=== PATIENT | female | born 1985 | race Caucasian/White ===

== ENCOUNTER 2020-09-24 23:22 | Inpatient (IN) | payer OTHER ==
[~2020-09-24] VITALS: Ht 152.4 cm; Wt 46.2 kg
--- NOTE | 2020-09-24 23:41 | NUR ---
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 pt postioned to comfort attached to all monitors. fabby. nadn. Christy alrbecht to bedside for evaluation.
[2020-09-25] MEDS ORDERED: SODIUM CHLORIDE FLUSH 10ML SYR IVF ONE
[2020-09-25 00:15] LABS: MICROSCOPIC NOT IND
[2020-09-25 00:19] LABS: BASOPHILS % (AUTO) 0 % (0-1); EOSINOPHILS % (AUTO) 0 % (1-7); LYMPHOCYTES % (AUTO) 3 % (22-44); MEAN CORPUSCULAR HEMOGLOBIN 31.3 pg (27.0-34.8); MEAN CORPUSCULAR HGB CONC 33.8 g/dL (32.4-35.8); MEAN PLATELET VOLUME 8.9 fL (7.4-10.4); MONOCYTES % (AUTO) 1 % (2-9); NEUTROPHILS % (AUTO) 96 % (42-75); PLATELET COUNT 177 x10^3/uL (130-400); RED BLOOD COUNT 3.73 x10^6/uL (3.82-5.3); RED CELL DISTRIBUTION WIDTH 12.8 % (9.6-15.2)
[2020-09-25 00:26] LABS: ALANINE AMINOTRANSFERASE 30 U/L (12-78); ALBUMIN 3.1 g/dL (3.4-5.0); ANION GAP 7 mmol/L (5-15); CALCIUM 7.2 mg/dL (8.5-10.1); CHLORIDE 113 mmol/L (98-107); CREATININE 0.81 mg/dL (0.55-1.02)
[2020-09-25 00:28] LABS: ALKALINE PHOSPHATASE 43 U/L (45-117); BILIRUBIN,TOTAL 0.3 mg/dL (0.2-1.0)
[2020-09-25] MEDS ORDERED: PLEASE ENTER ALLERGIES MC SCH (00:30)
[2020-09-25 00:42] LABS: MD SCAN
[2020-09-25] MEDS ORDERED: ONDANSETRON 2MG/ML, 2ML IVPush PRN ×2 (01:30→11:00)
[2020-09-25] MEDS ORDERED: MORPHINE SULFATE 4 MG/ML, 1ML IVPush PRN (01:30)
[2020-09-25] MEDS ORDERED: SODIUM CHLORIDE 0.9% 1,000 ML IV ONE ×2 (01:30)
[2020-09-25] MEDS ORDERED: PROMETHAZINE 25 MG/ML, 1ML IM PRN (02:00)
[2020-09-25] MEDS ORDERED: ONDANSETRON ODT 4 MG PO PRN (02:00)
[2020-09-25] MEDS ORDERED: hydrALAzine 20 MG/ML, 1ML IVPush PRN (02:00)
[2020-09-25] MEDS ORDERED: ACETAMINOPHEN 325 MG TABLET PO PRN ×2 (02:00→11:00)
[2020-09-25 02:52] VITALS: BP 105/66
[2020-09-25] MEDS: ENOXAPARIN 40 MG/0.4 ML SQ SCH (03:42)
[2020-09-25] MEDS: D5%-0.9% NACL 1,000 ML IV SCH ×2 (03:48→20:00)
[2020-09-25 05:27] LABS: BASOPHILS % (AUTO) 0 % (0-1); EOSINOPHILS % (AUTO) 0 % (1-7); LYMPHOCYTES % (AUTO) 7 % (22-44); MEAN CORPUSCULAR HEMOGLOBIN 31.2 pg (27.0-34.8); MEAN CORPUSCULAR HGB CONC 33.6 g/dL (32.4-35.8); MEAN PLATELET VOLUME 9.2 fL (7.4-10.4); MONOCYTES % (AUTO) 5 % (2-9); NEUTROPHILS % (AUTO) 89 % (42-75); PLATELET COUNT 183 x10^3/uL (130-400); RED BLOOD COUNT 3.58 x10^6/uL (3.82-5.3); RED CELL DISTRIBUTION WIDTH 13.2 % (9.6-15.2)
[2020-09-25 05:44] LABS: CHLORIDE 118 mmol/L (98-107)
[2020-09-25 05:55] LABS: ALANINE AMINOTRANSFERASE 28 U/L (12-78); ALBUMIN 2.9 g/dL (3.4-5.0); ALKALINE PHOSPHATASE 39 U/L (45-117); ANION GAP 8 mmol/L (5-15); BILIRUBIN,TOTAL 0.3 mg/dL (0.2-1.0); CALCIUM 6.9 mg/dL (8.5-10.1); CHOL/HDL RATIO 1.7; CHOLESTEROL, TOTAL 101 mg/dL (140-239); HDL CHOL % 57 % (28-40); HDL CHOLESTEROL (DIRECT) 58 mg/dL (40-60); LDL CHOLESTEROL,CALCULATED 33 mg/dL (54-169); LDL/HDL RATIO 0.6 (0.5-3.0); TOTAL PROTEIN 5.7 g/dL (6.4-8.2); TRIGLYCERIDES 52 mg/dL (50-200); VLDL CHOLESTEROL 10 mg/dL (0-25)
[2020-09-25 05:57] LABS: MD SCAN
[2020-09-25 06:45] VITALS: BP 118/81
[2020-09-25] MEDS ORDERED: CEFTRIAXONE 1,000 MG in DEXTROSE 5% 50 ML IVPB SCH (08:00)
[2020-09-25] MEDS: METRONIDAZOLE PMX 500MG/100ML 100 ML IV SCH ×2 (08:57→16:00)
[2020-09-25] MEDS ORDERED: PROPOFOL 10 MG/ML, 20ML ONE (10:37)
[2020-09-25] MEDS ORDERED: PROMETHAZINE 25 MG/ML, 1ML IVPush PRN (11:00)
[2020-09-25] MEDS ORDERED: MEPERIDINE/PF 25MG/0.5ML IVPush PRN (11:00)
[2020-09-25] MEDS ORDERED: LORazepam 2 MG/ML, 1ML IVPush PRN (11:00)
[2020-09-25] MEDS ORDERED: FENTANYL PF 100 MCG/2ML IV PRN (11:00)
[2020-09-25] MEDS ORDERED: METHOCARBAMOL 1,000 MG in DEXTROSE 5% 100 ML IV PRN (11:00)
[2020-09-25] MEDS ORDERED: OXYcodone 5 MG/5 ML ORAL.SOL UDC PO PRN (11:00)
[2020-09-25] MEDS ORDERED: PROMETHAZINE 25 MG SUPP PR PRN (11:00)
[2020-09-25] MEDS ORDERED: FENTANYL PF 100 MCG/2ML ONE (11:09)
[2020-09-25] MEDS: PANTOPRAZOLE 40 MG IV IVPush SCH ×2 (12:24→19:59)
[2020-09-25 12:45] VITALS: BP 122/80
[2020-09-25 18:33] VITALS: BP 117/72
[2020-09-25] MEDS: KETOROLAC 30 MG/1 ML IV PRN (19:20)
[2020-09-25] MEDS: LORazepam 2 MG/ML, 1ML IVPush PRN (21:23)
[2020-09-26 00:17] VITALS: BP 124/77
[2020-09-26] MEDS: KETOROLAC 30 MG/1 ML IV PRN ×4 (02:39→21:39)
[2020-09-26] MEDS: ENOXAPARIN 40 MG/0.4 ML SQ SCH (03:54)
[2020-09-26] MEDS: D5%-0.9% NACL 1,000 ML IV SCH ×2 (03:56→15:24)
[2020-09-26 06:32] VITALS: BP 111/69
[2020-09-26 06:40] LABS: BASOPHILS % (AUTO) 0 % (0-1); EOSINOPHILS % (AUTO) 1 % (1-7); LYMPHOCYTES % (AUTO) 17 % (22-44); MEAN CORPUSCULAR HEMOGLOBIN 31.4 pg (27.0-34.8); MEAN CORPUSCULAR HGB CONC 34.2 g/dL (32.4-35.8); MEAN PLATELET VOLUME 9.6 fL (7.4-10.4); MONOCYTES % (AUTO) 6 % (2-9); NEUTROPHILS % (AUTO) 76 % (42-75); PLATELET COUNT 161 x10^3/uL (130-400); RED BLOOD COUNT 3.57 x10^6/uL (3.82-5.3); RED CELL DISTRIBUTION WIDTH 12.7 % (9.6-15.2)
[2020-09-26 06:41] LABS: MD NO
[2020-09-26 06:51] LABS: ALANINE AMINOTRANSFERASE 29 U/L (12-78); ALBUMIN 3.1 g/dL (3.4-5.0); ANION GAP 7 mmol/L (5-15); CALCIUM 7.8 mg/dL (8.5-10.1); CHLORIDE 113 mmol/L (98-107); CREATININE 0.53 mg/dL (0.55-1.02)
[2020-09-26 06:56] LABS: ALKALINE PHOSPHATASE 39 U/L (45-117); BILIRUBIN,TOTAL 0.4 mg/dL (0.2-1.0); TOTAL PROTEIN 5.9 g/dL (6.4-8.2)
[2020-09-26] MEDS ORDERED: POTASSIUM CHLORIDE 20 MEQ TAB.ER.PRT PO ONE ×2 (07:30→14:30)
[2020-09-26] MEDS: MEROPENEM 500 MG in SODIUM CHLORIDE 0.9% 100 ML IV SCH ×3 (08:54→23:22)
[2020-09-26] MEDS: PANTOPRAZOLE 40 MG IV IVPush SCH ×2 (10:44→21:19)
[2020-09-26] MEDS: LORazepam 2 MG/ML, 1ML IVPush PRN ×2 (12:11→23:21)
[2020-09-26 15:01] VITALS: BP 110/64
[2020-09-26] MEDS ORDERED: POTASSIUM CHLORIDE 20 MEQ in SODIUM CHLORIDE 0.9% 250 ML IV ONE (16:30)
[2020-09-26 16:35] LABS: CLOSTRIDIUM DIFFICILE ANTIGEN NEGATIVE; CLOSTRIDIUM DIFFICILE TOXIN NEGATIVE (Negative)
[2020-09-26 18:37] VITALS: BP 121/79
[2020-09-27 00:29] VITALS: BP 115/73
[2020-09-27] MEDS: ENOXAPARIN 40 MG/0.4 ML SQ SCH (04:10)
[2020-09-27] MEDS: D5%-0.9% NACL 1,000 ML IV SCH (04:10)
[2020-09-27 06:45] VITALS: BP 129/84
[2020-09-27] MEDS: MEROPENEM 500 MG in SODIUM CHLORIDE 0.9% 100 ML IV SCH ×3 (07:26→23:35)
[2020-09-27] MEDS: KETOROLAC 30 MG/1 ML IV PRN ×3 (07:35→20:02)
[2020-09-27 08:14] LABS: BASOPHILS % (AUTO) 1 % (0-1); EOSINOPHILS % (AUTO) 1 % (1-7); LYMPHOCYTES % (AUTO) 20 % (22-44); MEAN CORPUSCULAR HEMOGLOBIN 31.4 pg (27.0-34.8); MEAN CORPUSCULAR HGB CONC 34.2 g/dL (32.4-35.8); MEAN PLATELET VOLUME 8.8 fL (7.4-10.4); MONOCYTES % (AUTO) 6 % (2-9); NEUTROPHILS % (AUTO) 72 % (42-75); PLATELET COUNT 175 x10^3/uL (130-400); RED BLOOD COUNT 4.12 x10^6/uL (3.82-5.3); RED CELL DISTRIBUTION WIDTH 12.7 % (9.6-15.2)
[2020-09-27 08:20] LABS: ANION GAP 7 mmol/L (5-15); CALCIUM 7.9 mg/dL (8.5-10.1); CHLORIDE 112 mmol/L (98-107); CREATININE 0.64 mg/dL (0.55-1.02)
[2020-09-27 08:25] LABS: MD NO
[2020-09-27] MEDS: PANTOPRAZOLE 40 MG IV IVPush SCH ×2 (08:59→22:34)
[2020-09-27] MEDS ORDERED: TPN PER PHARMACY MC PRN (12:00)
[2020-09-27 13:07] VITALS: BP 117/79
[2020-09-27] MEDS ORDERED: D5%-0.9% NACL 1,000 ML IV SCH ×2 (14:27→17:00)
[2020-09-27] MEDS ORDERED: PVN PER PHARMACY MC SCH (14:30)
[2020-09-27] MEDS ORDERED: DEXTROSE 50%, 50ML SYRINGE IVPush PRN (17:00)
[2020-09-27] MEDS ORDERED: SMOF TPN IV SCH (17:00)
[2020-09-27] MEDS ORDERED: [UNRECOGNIZED DRUG - OTHER] IV SCH (17:00)
[2020-09-27] MEDS ORDERED: DEXTROSE 70% IV SCH (17:00)
[2020-09-27] MEDS ORDERED: FAT EMUL IV SCH (17:00)
[2020-09-27] MEDS ORDERED: DEXTROSE 10% 500 ML IV PRN (17:00)
[2020-09-27] MEDS ORDERED: AMINO ACID 10% IV SCH (17:00)
[2020-09-27 20:18] VITALS: BP 118/71
[2020-09-27] MEDS: INSULIN REGULAR LOW DOSE Q6H X 48HRS SQ-INSULIN SCH (22:22)
[2020-09-27] MEDS: LORazepam 2 MG/ML, 1ML IVPush PRN (22:34)
[2020-09-28 00:32] VITALS: BP 105/67
[2020-09-28] MEDS: INSULIN REGULAR LOW DOSE Q6H X 48HRS SQ-INSULIN SCH ×4 (03:00→23:00)
[2020-09-28] MEDS ORDERED: D5%-0.9% NACL 1,000 ML IV SCH ×3 (03:30→12:38)
[2020-09-28] MEDS: ENOXAPARIN 40 MG/0.4 ML SQ SCH (04:09)
[2020-09-28] MEDS: KETOROLAC 30 MG/1 ML IV PRN (04:29)
[2020-09-28 05:18] LABS: CHLORIDE 109 mmol/L (98-107)
[2020-09-28 05:29] LABS: ALANINE AMINOTRANSFERASE 28 U/L (12-78); ALBUMIN 3.4 g/dL (3.4-5.0); ALKALINE PHOSPHATASE 49 U/L (45-117); ANION GAP 6 mmol/L (5-15); BILIRUBIN,TOTAL 0.6 mg/dL (0.2-1.0); CALCIUM 8.6 mg/dL (8.5-10.1); CREATININE 0.64 mg/dL (0.55-1.02); PREALBUMIN 25.2 mg/dL (20.0-40.0); TOTAL PROTEIN 7.1 g/dL (6.4-8.2); TRIGLYCERIDES 111 mg/dL (50-200)
[2020-09-28 06:30] VITALS: BP 123/69
[2020-09-28] MEDS ORDERED: POTASSIUM CHLORIDE 20 MEQ in SODIUM CHLORIDE 0.9% 250 ML IV ONE (07:00)
[2020-09-28] MEDS: PANTOPRAZOLE 40 MG IV IVPush SCH ×2 (07:43→21:02)
[2020-09-28] MEDS: MEROPENEM 500 MG in SODIUM CHLORIDE 0.9% 100 ML IV SCH ×3 (07:50→23:39)
[2020-09-28] MEDS: FILTER, DISP 1.2 MICRON FOR TPN/PVN IV PRN ×2 (09:09→17:01)
[2020-09-28] MEDS: ONDANSETRON 2MG/ML, 2ML IVPush PRN (09:21)
--- NOTE | 2020-09-28 11:17 | NUR ---
spoke with patient and father who was in room regarding sulfate allergy Patient has reported history of systemic type reaction (rash / ears itching) after ingesting zinc sulfate and ferrous sulfate orally. Patient expressed concern regarding having magnesium sulfate in parenteral nutrition formulation Magnesium sulfate will be removed from initial PN formula. Informed patient that TPN can result in electrolyte abnormalities, which may need to be corrected for, by using IV Mag sulfate which can be added back to PN at any point (if still unable to take PO magnesium oxide due to NPO status). Patient expressed understanding and agreeable with plan to remove magnesium sulfate from PN initially, and would be agreeable to having it added back to PN if needed due to low magnesium levels, if that abnormality should present itself during the course of PN. Nilton Ribeiro PharmD Signed: 09/28/20 at 1117 by Nilton Ribeiro PHA Signed: 09/28/20 at 1117 by Nilton Ribeiro PHA Signed: 09/28/20 at 1118 by Nilton Ribeiro PHA
[2020-09-28 12:54] VITALS: BP 116/79
[2020-09-28] MEDS ORDERED: DEXTROSE 10% 500 ML IV PRN (13:20)
[2020-09-28] MEDS ORDERED: [UNRECOGNIZED DRUG - OTHER] IV SCH (17:00)
[2020-09-28] MEDS ORDERED: AMINO ACID 10% IV SCH (17:00)
[2020-09-28] MEDS ORDERED: FAT EMUL IV SCH (17:00)
[2020-09-28] MEDS ORDERED: DEXTROSE 70% IV SCH (17:00)
[2020-09-28] MEDS ORDERED: SMOF TPN IV SCH (17:00)
[2020-09-28 19:46] VITALS: BP 114/76
[2020-09-28] MEDS: LORazepam 2 MG/ML, 1ML IVPush PRN (22:21)
[2020-09-29 00:28] VITALS: BP 105/66
[2020-09-29] MEDS: INSULIN REGULAR LOW DOSE Q6H X 48HRS SQ-INSULIN SCH ×4 (05:00→23:00)
[2020-09-29] MEDS: ENOXAPARIN 40 MG/0.4 ML SQ SCH (05:07)
[2020-09-29 07:01] VITALS: BP 99/70
[2020-09-29 07:13] LABS: BASOPHILS % (AUTO) 1 % (0-1); EOSINOPHILS % (AUTO) 3 % (1-7); LYMPHOCYTES % (AUTO) 23 % (22-44); MEAN CORPUSCULAR HEMOGLOBIN 31.5 pg (27.0-34.8); MEAN CORPUSCULAR HGB CONC 34.9 g/dL (32.4-35.8); MEAN PLATELET VOLUME 8.3 fL (7.4-10.4); MONOCYTES % (AUTO) 8 % (2-9); NEUTROPHILS % (AUTO) 65 % (42-75); PLATELET COUNT 203 x10^3/uL (130-400); RED BLOOD COUNT 4.01 x10^6/uL (3.82-5.3); RED CELL DISTRIBUTION WIDTH 12.3 % (9.6-15.2)
[2020-09-29 07:19] LABS: ALANINE AMINOTRANSFERASE 24 U/L (12-78); ALBUMIN 3.3 g/dL (3.4-5.0); CALCIUM 8.5 mg/dL (8.5-10.1); CREATININE 0.66 mg/dL (0.55-1.02); MD NO
[2020-09-29 07:21] LABS: ALKALINE PHOSPHATASE 38 U/L (45-117); BILIRUBIN,TOTAL 0.4 mg/dL (0.2-1.0); TOTAL PROTEIN 6.5 g/dL (6.4-8.2)
[2020-09-29 07:40] LABS: ANION GAP 3 mmol/L (5-15); CHLORIDE 111 mmol/L (98-107)
[2020-09-29] MEDS: MEROPENEM 500 MG in SODIUM CHLORIDE 0.9% 100 ML IV SCH ×3 (08:06→23:18)
[2020-09-29] MEDS: PANTOPRAZOLE 40 MG IV IVPush SCH ×2 (08:07→20:36)
[2020-09-29 14:03] VITALS: BP 115/83
[2020-09-29] MEDS: VALACYCLOVIR 500MG TABLET PO SCH ×2 (16:30→17:50)
[2020-09-29] MEDS ORDERED: DEXTROSE 70% IV SCH (17:00)
[2020-09-29] MEDS ORDERED: FAT EMUL IV SCH (17:00)
[2020-09-29] MEDS ORDERED: SMOF TPN IV SCH (17:00)
[2020-09-29] MEDS ORDERED: AMINO ACID 10% IV SCH (17:00)
[2020-09-29] MEDS ORDERED: [UNRECOGNIZED DRUG - OTHER] IV SCH (17:00)
[2020-09-29] MEDS: FILTER, DISP 1.2 MICRON FOR TPN/PVN IV PRN (18:13)
[2020-09-29 19:05] VITALS: BP 131/86
[2020-09-29] MEDS: LORazepam 2 MG/ML, 1ML IVPush PRN (20:36)
[2020-09-29] MEDS: KETOROLAC 30 MG/1 ML IV PRN (23:16)
[2020-09-30 01:43] VITALS: BP 108/67
[2020-09-30] MEDS: INSULIN REGULAR LOW DOSE Q6H X 48HRS SQ-INSULIN SCH ×3 (05:00→16:55)
[2020-09-30] MEDS: ENOXAPARIN 40 MG/0.4 ML SQ SCH (05:53)
[2020-09-30 06:12] LABS: BASOPHILS % (AUTO) 1 % (0-1); EOSINOPHILS % (AUTO) 4 % (1-7); LYMPHOCYTES % (AUTO) 29 % (22-44); MEAN CORPUSCULAR HEMOGLOBIN 31.5 pg (27.0-34.8); MEAN CORPUSCULAR HGB CONC 34.8 g/dL (32.4-35.8); MEAN PLATELET VOLUME 8.6 fL (7.4-10.4); MONOCYTES % (AUTO) 11 % (2-9); NEUTROPHILS % (AUTO) 56 % (42-75); PLATELET COUNT 200 x10^3/uL (130-400); RED BLOOD COUNT 3.92 x10^6/uL (3.82-5.3); RED CELL DISTRIBUTION WIDTH 12.4 % (9.6-15.2)
[2020-09-30 06:19] LABS: ALANINE AMINOTRANSFERASE 24 U/L (12-78); ALBUMIN 3.1 g/dL (3.4-5.0); ANION GAP 3 mmol/L (5-15); CALCIUM 8.4 mg/dL (8.5-10.1); CHLORIDE 111 mmol/L (98-107); CREATININE 0.48 mg/dL (0.55-1.02); MD NO
[2020-09-30 06:22] LABS: ALKALINE PHOSPHATASE 41 U/L (45-117); BILIRUBIN,TOTAL 0.4 mg/dL (0.2-1.0); TOTAL PROTEIN 6.4 g/dL (6.4-8.2)
[2020-09-30] MEDS: MEROPENEM 500 MG in SODIUM CHLORIDE 0.9% 100 ML IV SCH (07:33)
[2020-09-30 07:58] VITALS: BP 107/61
[2020-09-30] MEDS ORDERED: INSULIN REGULAR LOW DOSE QDAY SQ-INSULIN SCH (09:00)
[2020-09-30] MEDS: PANTOPRAZOLE 40 MG IV IVPush SCH ×2 (10:12→21:58)
[2020-09-30] MEDS: VALACYCLOVIR 500MG TABLET PO SCH (10:52)
[2020-09-30 11:15] LABS: TROPONIN I < 0.015 ng/mL (0.000-0.045)
[2020-09-30] MEDS: LORazepam 2 MG/ML, 1ML IVPush PRN ×2 (14:28→21:59)
[2020-09-30 14:50] VITALS: BP 137/94
[2020-09-30 16:50] LABS: TROPONIN I < 0.015 ng/mL (0.000-0.045)
[2020-09-30] MEDS ORDERED: AMINO ACID 10% IV SCH (17:00)
[2020-09-30] MEDS ORDERED: [UNRECOGNIZED DRUG - OTHER] IV SCH (17:00)
[2020-09-30] MEDS ORDERED: SMOF TPN IV SCH (17:00)
[2020-09-30] MEDS ORDERED: DEXTROSE 70% IV SCH (17:00)
[2020-09-30] MEDS ORDERED: FAT EMUL IV SCH (17:00)
[2020-09-30] MEDS: FILTER, DISP 1.2 MICRON FOR TPN/PVN IV PRN (17:12)
[2020-09-30 18:45] VITALS: BP 121/85
[2020-09-30] MEDS: D5%-0.9% NACL 1,000 ML IV SCH ×2 (21:00→23:17)
[2020-09-30] MEDS ORDERED: KETOROLAC 30 MG/1 ML IVPush ONE (22:00)
[2020-09-30] MEDS ORDERED: DIPHENHYDRAMINE 50 MG/ML, 1ML IVPush ONE (22:00)
[2020-09-30 22:29] LABS: TROPONIN I < 0.015 ng/mL (0.000-0.045)
[2020-10-01 00:56] VITALS: BP 108/69
[2020-10-01] MEDS: ENOXAPARIN 40 MG/0.4 ML SQ SCH (04:42)
[2020-10-01 05:36] LABS: CALCIUM 8.5 mg/dL (8.5-10.1)
[2020-10-01 05:37] LABS: CREATININE 0.58 mg/dL (0.55-1.02)
[2020-10-01 05:54] LABS: ANION GAP 3 mmol/L (5-15); CHLORIDE 112 mmol/L (98-107)
[2020-10-01 08:32] VITALS: BP 124/86
[2020-10-01] MEDS: PANTOPRAZOLE 40 MG IV IVPush SCH (09:23)
[2020-10-01] MEDS: FAMOTIDINE 20 MG TABLET PO SCH ×2 (09:23→21:21)
[2020-10-01] MEDS: VALACYCLOVIR 500MG TABLET PO SCH (09:23)
[2020-10-01] MEDS: D5%-0.9% NACL 1,000 ML IV SCH (12:04)
[2020-10-01 15:00] VITALS: BP 126/78
[2020-10-01] MEDS ORDERED: INSULIN REGULAR LOW DOSE QDAY SQ-INSULIN SCH (16:00)
[2020-10-01] MEDS ORDERED: FILTER, DISP 1.2 MICRON FOR TPN/PVN IV PRN (17:00)
[2020-10-01] MEDS ORDERED: FAT EMUL IV SCH ×2 (17:00)
[2020-10-01] MEDS ORDERED: [UNRECOGNIZED DRUG - OTHER] IV SCH (17:00)
[2020-10-01] MEDS ORDERED: AMINO ACID 10% IV SCH ×2 (17:00)
[2020-10-01] MEDS ORDERED: SMOF TPN IV SCH ×2 (17:00)
[2020-10-01] MEDS ORDERED: DEXTROSE 70% IV SCH ×2 (17:00)
[2020-10-01] MEDS ORDERED: [UNRECOGNIZED DRUG - OTHER] IV SCH (17:00)
[2020-10-01 20:37] VITALS: BP 125/81
[2020-10-01] MEDS: LORazepam 2 MG/ML, 1ML IVPush PRN (21:21)
[2020-10-02] VITALS (9 sets, daily range): BP systolic 114–142; BP diastolic 79–99
[2020-10-02] MEDS ORDERED: TEMAZEPAM 15 MG CAPSULE PO ONE (00:30)
[2020-10-02] MEDS: D5%-0.9% NACL 1,000 ML IV SCH ×2 (02:55→15:58)
[2020-10-02] MEDS: ENOXAPARIN 40 MG/0.4 ML SQ SCH (05:33)
[2020-10-02] MEDS: VALACYCLOVIR 500MG TABLET PO SCH (08:55)
[2020-10-02] MEDS: FAMOTIDINE 20 MG TABLET PO SCH ×2 (08:55→20:29)
[2020-10-02] MEDS ORDERED: OXYcodone 5 MG/5 ML ORAL.SOL UDC PO PRN (16:30)
[2020-10-02] MEDS ORDERED: MELATONIN 5 MG TABLET PO PRN (16:30)
[2020-10-02] MEDS ORDERED: SMOF TPN IV SCH (17:00)
[2020-10-02] MEDS ORDERED: DEXTROSE 70% IV SCH (17:00)
[2020-10-02] MEDS ORDERED: [UNRECOGNIZED DRUG - OTHER] IV SCH (17:00)
[2020-10-02] MEDS ORDERED: AMINO ACID 10% IV SCH (17:00)
[2020-10-02] MEDS ORDERED: FAT EMUL IV SCH (17:00)
[2020-10-02] MEDS ORDERED: FILTER, DISP 1.2 MICRON FOR TPN/PVN IV PRN ×2 (17:00)
--- NOTE | 2020-10-02 20:14 | NUR ---
WILLIS LOZANO - Fall Risk Medication(s) present and receiving anticoagulants.
[2020-10-02] MEDS: LORazepam 2 MG/ML, 1ML IVPush PRN (20:48)
[2020-10-02] MEDS: ZOLPIDEM 5MG TABLET PO PRN (22:28)
[2020-10-03 00:25] VITALS: BP 116/82
[2020-10-03] MEDS: D5%-0.9% NACL 1,000 ML IV SCH ×2 (04:12→17:48)
[2020-10-03] MEDS: ENOXAPARIN 40 MG/0.4 ML SQ SCH (04:12)
[2020-10-03] MEDS: LORazepam 2 MG/ML, 1ML IVPush PRN ×2 (04:20→20:04)
[2020-10-03 04:40] LABS: BASOPHILS % (AUTO) 1 % (0-1); EOSINOPHILS % (AUTO) 5 % (1-7); LYMPHOCYTES % (AUTO) 28 % (22-44); MEAN CORPUSCULAR HEMOGLOBIN 31.6 pg (27.0-34.8); MEAN CORPUSCULAR HGB CONC 34.4 g/dL (32.4-35.8); MEAN PLATELET VOLUME 8.9 fL (7.4-10.4); MONOCYTES % (AUTO) 10 % (2-9); NEUTROPHILS % (AUTO) 56 % (42-75); PLATELET COUNT 196 x10^3/uL (130-400); RED BLOOD COUNT 3.99 x10^6/uL (3.82-5.3); RED CELL DISTRIBUTION WIDTH 12.4 % (9.6-15.2)
[2020-10-03 04:41] LABS: ANION GAP 3 mmol/L (5-15); CALCIUM 8.6 mg/dL (8.5-10.1); CHLORIDE 111 mmol/L (98-107); CREATININE 0.62 mg/dL (0.55-1.02); MD NO
[2020-10-03 04:42] LABS: INTERNATIONAL NORMALIZED RATIO 1.07 (0.93-1.1); PROTHROMBIN TIME 11.4 Seconds (9.6-11.5)
[2020-10-03 07:17] VITALS: BP 116/78
[2020-10-03] MEDS: FAMOTIDINE 20 MG TABLET PO SCH ×2 (08:42→19:48)
[2020-10-03] MEDS: VALACYCLOVIR 500MG TABLET PO SCH (08:42)
[2020-10-03] MEDS: INSULIN REGULAR LOW DOSE QDAY SQ-INSULIN SCH (08:47)
[2020-10-03] MEDS ORDERED: DEXTROSE 70% IV SCH (17:00)
[2020-10-03] MEDS ORDERED: [UNRECOGNIZED DRUG - OTHER] IV SCH (17:00)
[2020-10-03] MEDS ORDERED: FAT EMUL IV SCH (17:00)
[2020-10-03] MEDS ORDERED: AMINO ACID 10% IV SCH (17:00)
[2020-10-03] MEDS ORDERED: SMOF TPN IV SCH (17:00)
[2020-10-03] MEDS: FILTER, DISP 1.2 MICRON FOR TPN/PVN IV PRN (17:50)
[2020-10-03] MEDS: ZOLPIDEM 5MG TABLET PO PRN (21:48)
[2020-10-03 21:51] VITALS: BP 128/76
[2020-10-04 01:44] VITALS: BP 92/57
[2020-10-04] MEDS: ENOXAPARIN 40 MG/0.4 ML SQ SCH (04:53)
[2020-10-04 04:59] LABS: BASOPHILS % (AUTO) 1 % (0-1); EOSINOPHILS % (AUTO) 4 % (1-7); LYMPHOCYTES % (AUTO) 29 % (22-44); MEAN CORPUSCULAR HEMOGLOBIN 31.9 pg (27.0-34.8); MEAN CORPUSCULAR HGB CONC 35.1 g/dL (32.4-35.8); MEAN PLATELET VOLUME 9.1 fL (7.4-10.4); MONOCYTES % (AUTO) 9 % (2-9); NEUTROPHILS % (AUTO) 56 % (42-75); PLATELET COUNT 184 x10^3/uL (130-400); RED BLOOD COUNT 3.72 x10^6/uL (3.82-5.3); RED CELL DISTRIBUTION WIDTH 12.3 % (9.6-15.2)
[2020-10-04 05:00] LABS: MD NO
[2020-10-04 05:09] LABS: ANION GAP 3 mmol/L (5-15); CALCIUM 8.5 mg/dL (8.5-10.1); CHLORIDE 111 mmol/L (98-107); CREATININE 0.57 mg/dL (0.55-1.02)
[2020-10-04] MEDS: D5%-0.9% NACL 1,000 ML IV SCH ×2 (06:09→22:35)
[2020-10-04 06:33] VITALS: BP 112/76
[2020-10-04] MEDS: INSULIN REGULAR LOW DOSE QDAY SQ-INSULIN SCH (07:57)
[2020-10-04] MEDS: VALACYCLOVIR 500MG TABLET PO SCH (08:29)
[2020-10-04] MEDS: FAMOTIDINE 20 MG TABLET PO SCH ×2 (08:29→19:43)
[2020-10-04 12:25] VITALS: BP 114/80
[2020-10-04] MEDS: LORazepam 2 MG/ML, 1ML IVPush PRN ×2 (13:44→21:48)
[2020-10-04] MEDS ORDERED: FAT EMUL IV SCH (17:00)
[2020-10-04] MEDS ORDERED: SMOF TPN IV SCH (17:00)
[2020-10-04] MEDS ORDERED: [UNRECOGNIZED DRUG - OTHER] IV SCH (17:00)
[2020-10-04] MEDS ORDERED: AMINO ACID 10% IV SCH (17:00)
[2020-10-04] MEDS ORDERED: DEXTROSE 70% IV SCH (17:00)
[2020-10-04] MEDS: FILTER, DISP 1.2 MICRON FOR TPN/PVN IV PRN (17:37)
[2020-10-04] MEDS: FLUCONAZOLE 200 MG TABLET PO SCH (18:03)
[2020-10-04] MEDS: MICONAZOLE 7 VAG. CRM 2%, 45GM VG SCH (18:03)
[2020-10-04] MEDS: ONDANSETRON 2MG/ML, 2ML IVPush PRN (19:54)
[2020-10-04 20:00] VITALS: BP 134/86
[2020-10-04] MEDS: ZOLPIDEM 5MG TABLET PO PRN (22:35)
[2020-10-05 01:50] VITALS: BP 92/61
[2020-10-05] MEDS: ENOXAPARIN 40 MG/0.4 ML SQ SCH (04:37)
[2020-10-05 05:28] LABS: BASOPHILS % (AUTO) 1 % (0-1); EOSINOPHILS % (AUTO) 4 % (1-7); LYMPHOCYTES % (AUTO) 30 % (22-44); MEAN CORPUSCULAR HEMOGLOBIN 31.7 pg (27.0-34.8); MEAN CORPUSCULAR HGB CONC 34.9 g/dL (32.4-35.8); MEAN PLATELET VOLUME 9.4 fL (7.4-10.4); MONOCYTES % (AUTO) 10 % (2-9); NEUTROPHILS % (AUTO) 56 % (42-75); PLATELET COUNT 190 x10^3/uL (130-400); RED BLOOD COUNT 3.62 x10^6/uL (3.82-5.3); RED CELL DISTRIBUTION WIDTH 12.5 % (9.6-15.2)
[2020-10-05 05:29] LABS: MD NO
[2020-10-05 05:38] LABS: ANION GAP 2 mmol/L (5-15); CALCIUM 8.5 mg/dL (8.5-10.1); CHLORIDE 111 mmol/L (98-107); CREATININE 0.64 mg/dL (0.55-1.02)
[2020-10-05] MEDS: INSULIN REGULAR LOW DOSE QDAY SQ-INSULIN SCH (07:02)
[2020-10-05 07:24] VITALS: BP 105/68
[2020-10-05] MEDS: FAMOTIDINE 20 MG TABLET PO SCH ×2 (07:52→21:31)
[2020-10-05] MEDS: VALACYCLOVIR 500MG TABLET PO SCH (07:52)
[2020-10-05 12:08] VITALS: BP 111/75
[2020-10-05] MEDS: D5%-0.9% NACL 1,000 ML IV SCH (12:38)
[2020-10-05] MEDS ORDERED: [UNRECOGNIZED DRUG - OTHER] IV SCH (17:00)
[2020-10-05] MEDS ORDERED: FAT EMUL IV SCH (17:00)
[2020-10-05] MEDS ORDERED: AMINO ACID 10% IV SCH (17:00)
[2020-10-05] MEDS ORDERED: SMOF TPN IV SCH (17:00)
[2020-10-05] MEDS ORDERED: DEXTROSE 70% IV SCH (17:00)
[2020-10-05] MEDS: FILTER, DISP 1.2 MICRON FOR TPN/PVN IV PRN (17:46)
[2020-10-05] MEDS: FLUCONAZOLE 200 MG TABLET PO SCH (18:06)
[2020-10-05] MEDS: ZOLPIDEM 5MG TABLET PO PRN (21:31)
[2020-10-05] MEDS: MICONAZOLE 7 VAG. CRM 2%, 45GM VG SCH (21:31)
[2020-10-05 21:37] VITALS: BP 110/71
[2020-10-05] MEDS: LORazepam 2 MG/ML, 1ML IVPush PRN (22:27)
[2020-10-06 03:08] VITALS: BP 106/68
[2020-10-06 04:27] LABS: BASOPHILS % (AUTO) 1 % (0-1); EOSINOPHILS % (AUTO) 4 % (1-7); LYMPHOCYTES % (AUTO) 33 % (22-44); MEAN CORPUSCULAR HEMOGLOBIN 31.8 pg (27.0-34.8); MEAN CORPUSCULAR HGB CONC 34.8 g/dL (32.4-35.8); MEAN PLATELET VOLUME 9.4 fL (7.4-10.4); MONOCYTES % (AUTO) 9 % (2-9); NEUTROPHILS % (AUTO) 54 % (42-75); PLATELET COUNT 187 x10^3/uL (130-400); RED BLOOD COUNT 3.68 x10^6/uL (3.82-5.3); RED CELL DISTRIBUTION WIDTH 12.4 % (9.6-15.2)
[2020-10-06 04:28] LABS: MD NO
[2020-10-06 04:40] LABS: ANION GAP 5 mmol/L (5-15); CALCIUM 8.3 mg/dL (8.5-10.1); CHLORIDE 110 mmol/L (98-107)
[2020-10-06 04:46] LABS: CREATININE 0.58 mg/dL (0.55-1.02); PREALBUMIN 28.2 mg/dL (20.0-40.0)
[2020-10-06] MEDS: ENOXAPARIN 40 MG/0.4 ML SQ SCH (04:58)
[2020-10-06] MEDS: D5%-0.9% NACL 1,000 ML IV SCH ×2 (05:59→21:22)
[2020-10-06 07:06] VITALS: BP 121/82
[2020-10-06] MEDS: INSULIN REGULAR LOW DOSE QDAY SQ-INSULIN SCH (07:26)
[2020-10-06] MEDS: FAMOTIDINE 20 MG TABLET PO SCH ×2 (08:08→20:33)
[2020-10-06] MEDS: VALACYCLOVIR 500MG TABLET PO SCH (08:08)
[2020-10-06] MEDS ORDERED: DEXTROSE 70% IV SCH (08:30)
[2020-10-06] MEDS ORDERED: AMINO ACID 10% IV SCH (08:30)
[2020-10-06] MEDS ORDERED: [UNRECOGNIZED DRUG - OTHER] IV SCH (08:30)
[2020-10-06] MEDS ORDERED: FAT EMUL IV SCH (08:30)
[2020-10-06] MEDS ORDERED: SMOF TPN IV SCH (08:30)
[2020-10-06] MEDS: LORazepam 2 MG/ML, 1ML IVPush PRN ×2 (12:20→20:33)
[2020-10-06 12:40] VITALS: BP 107/74
[2020-10-06] MEDS: FLUCONAZOLE 200 MG TABLET PO SCH (19:00)
[2020-10-06] MEDS: MICONAZOLE 7 VAG. CRM 2%, 45GM VG SCH (20:31)
[2020-10-06] MEDS: ZOLPIDEM 5MG TABLET PO PRN (22:31)
[2020-10-07 03:10] VITALS: BP 92/64
[2020-10-07] MEDS: ENOXAPARIN 40 MG/0.4 ML SQ SCH ×2 (03:53→20:41)
[2020-10-07 05:19] LABS: BASOPHILS % (AUTO) 1 % (0-1); EOSINOPHILS % (AUTO) 3 % (1-7); LYMPHOCYTES % (AUTO) 29 % (22-44); MD NO; MEAN CORPUSCULAR HEMOGLOBIN 31.6 pg (27.0-34.8); MEAN CORPUSCULAR HGB CONC 34.8 g/dL (32.4-35.8); MEAN PLATELET VOLUME 9.5 fL (7.4-10.4); MONOCYTES % (AUTO) 7 % (2-9); NEUTROPHILS % (AUTO) 60 % (42-75); PLATELET COUNT 193 x10^3/uL (130-400); RED BLOOD COUNT 3.71 x10^6/uL (3.82-5.3); RED CELL DISTRIBUTION WIDTH 12.4 % (9.6-15.2)
[2020-10-07 05:34] LABS: CHLORIDE 109 mmol/L (98-107)
[2020-10-07 05:41] LABS: ANION GAP 5 mmol/L (5-15); CALCIUM 8.4 mg/dL (8.5-10.1); CREATININE 0.64 mg/dL (0.55-1.02)
[2020-10-07 07:06] VITALS: BP 121/84
[2020-10-07] MEDS ORDERED: CEFTRIAXONE 500 MG in DEXTROSE 5% 50 ML IV ONE (08:30)
[2020-10-07] MEDS ORDERED: AZITHROMYCIN 500 MG TABLET PO ONE (08:30)
[2020-10-07] MEDS ORDERED: BISACODYL 10 MG SUPP PR PRN (09:00)
[2020-10-07] MEDS ORDERED: LACTULOSE 20 GM/30 ML UDC PO PRN (09:00)
[2020-10-07] MEDS ORDERED: BISACODYL 10 MG SUPP PR SCH (09:00)
[2020-10-07] MEDS: D5%-0.9% NACL 1,000 ML IV SCH (09:10)
[2020-10-07] MEDS: FAMOTIDINE 20 MG TABLET PO SCH ×2 (09:34→20:21)
[2020-10-07] MEDS: VALACYCLOVIR 500MG TABLET PO SCH (09:34)
[2020-10-07] MEDS: ONDANSETRON 2MG/ML, 2ML IVPush PRN (11:24)
[2020-10-07 12:04] VITALS: BP 118/83
[2020-10-07 18:40] VITALS: BP 122/79
[2020-10-07] MEDS: MICONAZOLE 7 VAG. CRM 2%, 45GM VG SCH (20:21)
[2020-10-07] MEDS: LORazepam 2 MG/ML, 1ML IVPush PRN (20:38)
[2020-10-07] MEDS: ZOLPIDEM 5MG TABLET PO PRN (22:16)
[2020-10-08 00:34] VITALS: BP 104/72
[2020-10-08 07:12] VITALS: BP 100/67
[2020-10-08] MEDS: FAMOTIDINE 20 MG TABLET PO SCH ×2 (08:34→20:02)
[2020-10-08] MEDS: VALACYCLOVIR 500MG TABLET PO SCH (08:34)
[2020-10-08] MEDS: ONDANSETRON 2MG/ML, 2ML IVPush PRN (12:11)
[2020-10-08 12:36] VITALS: BP 108/69
[2020-10-08 19:43] VITALS: BP 99/68
[2020-10-08] MEDS: LORazepam 2 MG/ML, 1ML IVPush PRN (20:02)
[2020-10-08] MEDS: MICONAZOLE 7 VAG. CRM 2%, 45GM VG SCH (20:09)
[2020-10-08] MEDS: ZOLPIDEM 5MG TABLET PO PRN (21:51)
[2020-10-09 00:59] VITALS: BP 97/69
[2020-10-09] MEDS: ENOXAPARIN 40 MG/0.4 ML SQ SCH (03:40)
[2020-10-09 06:28] VITALS: BP 93/60
[2020-10-09] MEDS: FAMOTIDINE 20 MG TABLET PO SCH (07:41)
[2020-10-09] MEDS: VALACYCLOVIR 500MG TABLET PO SCH (07:42)
[2020-10-09] MEDS: LORazepam 2 MG/ML, 1ML IVPush PRN (08:18)
[2020-10-09 13:10] VITALS: BP 103/69
== END 2020-10-09 20:30 | disposition home or self-care (01) | DRG 872 ==
LOC: ED 23:52 → EDIP 09-25 01:17 → 3N 09-25 02:43 → 5SO 09-30 12:28 → 3N 10-02 14:01
PROVIDERS: ADMIT Internal Medicine; ATTEND Internal Medicine
PROC: 0DJ08ZZ Inspection of Upper Intestinal Tract, Via Natural or Artificial Opening Endoscopic (ICD-10-PCS; 2020-09-25)
PROC: 0D9670Z Drainage of Stomach with Drainage Device, Via Natural or Artificial Opening (ICD-10-PCS; principal; 2020-09-25 10:30)
PROC: 02HV33Z Insertion of Infusion Device into Superior Vena Cava, Percutaneous Approach (ICD-10-PCS; 2020-09-28)
PROC: B548ZZA Ultrasonography of Superior Vena Cava, Guidance (ICD-10-PCS; 2020-09-28)
PROC: B5181ZA Fluoroscopy of Superior Vena Cava using Low Osmolar Contrast, Guidance (ICD-10-PCS; 2020-09-28)
PROC: 3E0436Z Introduction of Nutritional Substance into Central Vein, Percutaneous Approach (ICD-10-PCS; 2020-09-29)
DX: A40.8 Other streptococcal sepsis (principal); K55.1 Chronic vascular disorders of intestine; E87.6 Hypokalemia; E86.0 Dehydration; E83.42 Hypomagnesemia; E88.09 Other disorders of plasma-protein metabolism, not elsewhere classified; D64.9 Anemia, unspecified; E73.9 Lactose intolerance, unspecified; F12.10 Cannabis abuse, uncomplicated; F29 Unspecified psychosis not due to a substance or known physiological condition; F32.9 Major depressive disorder, single episode, unspecified; F43.22 Adjustment disorder with anxiety; J34.1 Cyst and mucocele of nose and nasal sinus; R63.6 Underweight; Z56.0 Unemployment, unspecified; Z59.0 Homelessness; Z62.810 Personal history of physical and sexual abuse in childhood; Z80.3 Family history of malignant neoplasm of breast; Z83.3 Family history of diabetes mellitus; Z83.49 Family history of other endocrine, nutritional and metabolic diseases; Z88.0 Allergy status to penicillin; Z88.2 Allergy status to sulfonamides
CPT/HCPCS: 36415; 74018; 74240; 84145; 87046; 89055; 99291; J7042; 36573; 70486; 71045; 80048; 80053; 80061; 81003; 82962; 83036; 83605; 83690; 83735; 84100; 84134; 84443; 84478; 84484; 85025; 85610; 85730; 87040; 87077; 87324; 93005; 93306; G0378; J0696; J1650; J1885; J2185; J2405; J2704; J3010; J3475; J3480; Q0162; C1751; C9113; J0610; J1200; J2060; J3420; J7030; J7050